=== PATIENT | female | born 1960 | race Caucasian/White ===

== ENCOUNTER 2024-10-15 11:23 | Outpatient (CLI) | payer MEDICARE, OTHER, SELFPAY ==
--- NOTE | ~2024-10-15 | XR_ITS ---
Right Humerus Technique: AP and lateral views were obtained. Clinical History: Pain Findings: No fracture or dislocation is seen. Osseous alignment is anatomic. Visualized joint spaces are grossly preserved. Soft tissues are unremarkable. Impression: Unremarkable examination. No fracture or dislocation. Reviewed, dictated and finalized at location . Impression: Unremarkable examination. No fracture or dislocation.
--- NOTE | ~2024-10-15 | XR_ITS ---
Right Shoulder Technique: AP and axillary views were obtained. Clinical History: Pain Findings: No fracture or dislocation is seen. Osseous alignment is anatomic. The glenohumeral and acr omioclavicular joint spaces are preserved. Soft tissues are unremarkable. Impression: Unremarkable right shoulder radiographs. Reviewed, dictated and finalized at [facility]. Impression: Unremarkable right shoulder radiographs.
== END 2024-10-15 11:24 | disposition home or self-care (01) ==
PROVIDERS: PCP Internal Medicine; Visit Provider Internal Medicine
DX: M25.511 Pain in right shoulder (principal); M79.621 Pain in right upper arm; I10 Essential (primary) hypertension; E11.9 Type 2 diabetes mellitus without complications
CPT/HCPCS: 73030; 73060

== ENCOUNTER 2025-02-05 01:15 | Day surgery (SDC) | payer OTHER, MEDICARE, SELFPAY ==
[2025-01-28 10:16] VITALS: BMI 29.2
--- NOTE | 2025-01-28 10:34 | PC.NURSE ---
Spoke with patient regarding medication Plavix. Patient verbalizes understanding that the last dose is to be taken on 01/28/25 and the Endoscopist will instruct them when to restart after the procedure.
[2025-02-05 07:56] VITALS: BP 121/47; PULSE 81; RESP 18; TEMP 36.3; O2SAT 100
[2025-02-05] MEDS: LACTATED RINGERS 1,000 ML 150 ML IV CONT (08:07)
--- NOTE | 2025-02-05 08:22 | WPDANESEPPF ---
Anes - Initial Pre Proc Eval Procedure: Operation Date: 02/05/25 09:00 Proposed Procedures p Screening Colonoscopy - Max Gonzalez MD Date/Time: 02/05/25 08:22 Surgeon: Max Gonzalez MD Pre Op Diagnosis: Personal history of colon polyps, unspecified Patient Data Age: 64 Gender: F Height: 1.57 m Weight: 72.3 kg Last Vital Signs Temp 97.3 F L 02/05/25 07:56 Pulse 81 02/05/25 07:56 Resp 18 02/05/25 07:56 BP 121/47 L 02/05/25 07:56 Pulse Ox 100 02/05/25 07:56 O2 Del Method Room Air 02/05/25 07:56 Allergies Allergy/AdvReac Type Severity Reaction Status Date / Time codeine Allergy Severe Difficulty Verified 02/05/25 07:50 Breathing amoxicillin Allergy Mild Hives Verified 02/05/25 07:50 Penicillins Allergy Mild Hives Verified 02/05/25 07:50 tetanus immune globulin Allergy Mild Swelling Verified 02/05/25 07:50 Home Medications ?Medication ?Instructions ?Recorded ?Confirmed ?Type atorvastatin 80 mg tablet 80 mg PO DAILY 10/10/23 01/28/25 History citalopram 20 mg tablet 20 mg PO DAILY 10/10/23 01/28/25 History clopidogrel 75 mg tablet 75 mg PO DAILY 10/10/23 02/05/25 History glimepiride 4 mg tablet 4 mg PO BID 10/10/23 01/28/25 History lisinopril 20 mg tablet 20 mg PO DAILY 10/10/23 01/28/25 History metformin 500 mg tablet 500 mg PO BID 10/10/23 01/28/25 History metoprolol succinate 25 mg 25 mg PO DAILY 10/10/23 01/28/25 History tablet,extended release 24 hr aspirin 81 mg tablet 81 mg PO DAILY 01/28/25 01/28/25 History brimonidine 0.2 % eye drops 1 drp EACH EYE BID 01/28/25 01/28/25 History doxycycline hyclate 100 mg capsule 100 mg PO BID 01/28/25 01/28/25 History prednisolone acetate 1 % eye 1 drp EACH EYE TID 01/28/25 01/28/25 History drops,suspension timolol maleate 0.5 % eye drops 1 drp EACH EYE BID 01/28/25 01/28/25 History Laboratory Tests 02/05/25 08:03 POC Capillary Glucose 211 H mg/dl (65-105) Patient hx anesthesia problems: none Family hx anesthesia problems: none Results Review: All pre-operative results and documents have been reviewed as part of the pre-operative evaluation. [facility] Past Medical History Medical History Anxiety Depression Diabetes Hyperlipidemia Hypertension Surgical History Surgical History H/O right heart catheterization H/O tubal ligation History of lumpectomy History of removal of skin mole History of delivery x 2 History of cholecystectomy Family History Family History Mother Diabetes mellitus Hypertension Heart disease Uterine cancer Father Hypertension Heart disease Sibling Heart disease Acute myocardial infarction Other Breast cancer niece and a cousin Social History Social History Smoking status: Current every day smoker Tobacco type: cigarettes Alcohol intake: never Substance use: never Do You Feel Safe in your Home?: Yes Lack of Transportation: No Lack of Food: Never True Current Housing: I Have Housing Concerned About Future Housing: No Difficulty Paying Gas/Electric Bills: No Difficulty Paying for Meds: No Currently Unemployed: No Education: High School Diploma/GED Difficulty w/ Childcare or Family Care: No Living arrangements: with family Occupation/Education: retired Gender identity (if verbalized by the patient): Female Anes - Eval Final PreProcedure Day of Procedure 02/05/25 08:22 Patient weight: overweight Lungs: normal air movement Airway: Mallampati scale class II and special considerations (Edentulous, two teeth on lower aspect. ) Neurological: alert and oriented Last oral intake: >/= 8 hours ASA classification: IV Emergent: no Anesthetic plan: proceed Anesthesia type and monitoring: general GIVS and standard monitoring Results Review: All pre-operative results and documents have been reviewed as part of the pre-operative evaluation. YOAN on CPAP, pt smokes 1.5 ppd for many years, smoked this am prior to procedural sedation, DM fsbs 211, s/p PTCA x 1 approx 2020, no interval cp, chr dyspnea. Pt w reported poor results from prep. Dr Gonzalez would like to proceed. Pt has held her plavix for this procedure. Informed Consent: The patient's anesthetic plan and its attendant risks and benefits were discussed with the patient/family/POA. Questions were solicited and answers provided to the satisfaction of the patient/family/POA.
--- NOTE | 2025-02-05 08:25 | PM.IMHP ---
H&P: HPI History of Present Illness Date/Time: 02/05/25 08:25 Chief Complaint: History of colon polyps Narrative: The patient has a history of colonic polyps, the last colonoscopy was 5 years ago. Review of Systems Review of Systems: All systems reviewed & are unremarkable except as noted in HPI and below PMFSH Past Medical History Medical History Anxiety Depression Diabetes Hyperlipidemia Hypertension Surgical History Surgical History H/O right heart catheterization H/O tubal ligation History of lumpectomy History of removal of skin mole History of delivery x 2 History of cholecystectomy Family History Family History Mother Diabetes mellitus Hypertension Heart disease Uterine cancer Father Hypertension Heart disease Sibling Heart disease Acute myocardial infarction Other Breast cancer niece and a cousin Social History Social History Smoking status: Current every day smoker Tobacco type: cigarettes Alcohol intake: never Substance use: never Do You Feel Safe in your Home?: Yes Lack of Transportation: No Lack of Food: Never True Current Housing: I Have Housing Concerned About Future Housing: No Difficulty Paying Gas/Electric Bills: No Difficulty Paying for Meds: No Currently Unemployed: No Education: High School Diploma/GED Difficulty w/ Childcare or Family Care: No Living arrangements: with family Occupation/Education: retired Gender identity (if verbalized by the patient): Female Meds Home Medications and Allergies Home Medications ?Medication ?Instructions ?Recorded ?Confirmed ?Type atorvastatin 80 mg tablet 80 mg PO DAILY 10/10/23 01/28/25 History citalopram 20 mg tablet 20 mg PO DAILY 10/10/23 01/28/25 History clopidogrel 75 mg tablet 75 mg PO DAILY 10/10/23 02/05/25 History glimepiride 4 mg tablet 4 mg PO BID 10/10/23 01/28/25 History lisinopril 20 mg tablet 20 mg PO DAILY 10/10/23 01/28/25 History metformin 500 mg tablet 500 mg PO BID 10/10/23 01/28/25 History metoprolol succinate 25 mg 25 mg PO DAILY 10/10/23 01/28/25 History tablet,extended release 24 hr aspirin 81 mg tablet 81 mg PO DAILY 01/28/25 01/28/25 History brimonidine 0.2 % eye drops 1 drp EACH EYE BID 01/28/25 01/28/25 History doxycycline hyclate 100 mg capsule 100 mg PO BID 01/28/25 01/28/25 History prednisolone acetate 1 % eye 1 drp EACH EYE TID 01/28/25 01/28/25 History drops,suspension timolol maleate 0.5 % eye drops 1 drp EACH EYE BID 01/28/25 01/28/25 History Allergies Allergy/AdvReac Type Severity Reaction Status Date / Time codeine Allergy Severe Difficulty Verified 02/05/25 07:50 Breathing amoxicillin Allergy Mild Hives Verified 02/05/25 07:50 Penicillins Allergy Mild Hives Verified 02/05/25 07:50 tetanus immune globulin Allergy Mild Swelling Verified 02/05/25 07:50 Vital Signs Vital Signs - 24 hr 02/05/25 07:56 Temperature 97.3 F L Pulse Rate 81 Respiratory Rate 18 Blood Pressure 121/47 L Pulse Oximetry 100 Oxygen Delivery Room Air Exam Const: General: cooperative and healthy appearing Resp: Effort & Inspection: normal respiratory effort and able to speak in complete sentences Auscultation: clear to auscultation bilaterally Cardio: Rate: regular rate Rhythm: regular rhythm GI: Inspection: normal to inspection GI Palp: No No hepatosplenomegaly present Auscultation: normal bowel sounds Rectal Exam: deferred Skin: General skin exam: normal color Psych: Appearance: grossly normal Mental Status: mental status grossly normal Assessment and Plan Assessment and plan (1) History of colonic polyps: Code(s): Z86.0100 - Personal history of colon polyps, unspecified Status: Acute Assessment and Plan: The patient is deemed a good candidate for the procedure. Consent signed. Will proceed.
--- NOTE | 2025-02-05 08:54 | P.HP_ITS ---
H&P: HPI History of Present Illness Date/Time: 02/05/25 08:54 Chief Complaint: History of colon polyps Narrative: The patient has a history of colonic polyps, the last colonoscopy was 5 years ago. Review of Systems Review of Systems: All systems reviewed & are unremarkable except as noted in HPI and below PMFSH Past Medical History Medical History Anxiety Depression Diabetes Hyperlipidemia Hypertension Surgical History Surgical History H/O right heart catheterization H/O tubal ligation History of lumpectomy History of removal of skin mole History of delivery x 2 History of cholecystectomy Family History Family History Mother Diabetes mellitus Hypertension Heart disease Uterine cancer Father Hypertension Heart disease Sibling Heart disease Acute myocardial infarction Other Breast cancer niece and a cousin Social History Social History Smoking status: Current every day smoker Tobacco type: cigarettes Alcohol intake: never Substance use: never Do You Feel Safe in your Home?: Yes Lack of Transportation: No Lack of Food: Never True Current Housing: I Have Housing Concerned About Future Housing: No Difficulty Paying Gas/Electric Bills: No Difficulty Paying for Meds: No Currently Unemployed: No Education: High School Diploma/GED Difficulty w/ Childcare or Family Care: No Living arrangements: with family Occupation/Education: retired Gender identity (if verbalized by the patient): Female Meds Home Medications and Allergies Home Medications ?Medication ?Instructions ?Recorded ?Confirmed ?Type atorvastatin 80 mg tablet 80 mg PO DAILY 10/10/2301/03 History citalopram 20 mg tablet 20 mg PO DAILY 10/10/2301/03 History clopidogrel 75 mg tablet 75 mg PO DAILY 10/10/2307/27 History glimepiride 4 mg tablet 4 mg PO BID 10/10/23 5 History lisinopril 20 mg tablet 20 mg PO DAILY 10/10/2301/03 History metformin 500 mg tablet 500 mg PO BID 10/10/2301/28 History metoprolol succinate 25 mg 25 mg PO DAILY 10/10/23 History tablet,extended release 24 hr aspirin 81 mg tablet 81 mg PO DAILY 01/28/2501/03 History brimonidine 0.2 % eye drops 1 drp EACH EYE BID 5 01/28/25 History doxycycline hyclate 100 mg capsule 100 mg PO BID 01/2801/28/25 History prednisolone acetate 1 % eye 1 drp EACH EYE TID 01/28/25 History drops,suspension timolol maleate 0.5 % eye drops 1 drp EACH EYE BID 01/28/25 History Allergies Allergy/AdvReac Type Severity Reaction Status Date / Time codeine Allergy Severe Difficulty Verified 02/05/25 07:50 Breathing amoxicillin Allergy Mild Hives Verified 02/05/25 07:50 Penicillins Allergy Mild Hives Verified 02/05/25 07:50 tetanus immune globulin Allergy Mild Swelling Verified 02/05/25 07:50 Vital Signs Vital Signs - 24 hr 02/05/25 07:56 Temperature 97.3 F L Pulse Rate 81 Respiratory Rate 18 Blood Pressure 121/47 L Pulse Oximetry 100 Oxygen Delivery Room Air Exam Const: General: cooperative and healthy appearing Resp: Effort & Inspection: normal respiratory effort and able to speak in complete sentences Auscultation: clear to auscultation bilaterally Cardio: Rate: regular rate Rhythm: regular rhythm GI: Inspection: normal to inspection GI Palp: No No hepatosplenomegaly present Auscultation: normal bowel sounds Rectal Exam: deferred Skin: General skin exam: normal color Psych: Appearance: grossly normal Mental Status: mental status grossly normal Assessment and Plan Assessment and plan (1) History of colonic polyps: Code(s): Z86.0100 - Personal history of colon polyps, unspecified Status: Acute
--- NOTE | 2025-02-05 09:06 | SUR.OPER ---
notified that patient's blood glucose is 211 in pre-op. okay to proceed with procedure
[2025-02-05 09:25] VITALS: BP 122/45; PULSE 79; RESP 20; O2SAT 100
[2025-02-05 09:35] VITALS: BP 128/62; PULSE 69; RESP 20; O2SAT 100
[2025-02-05 09:45] VITALS: BP 144/68; PULSE 70; RESP 17; O2SAT 100
== END 2025-02-05 09:55 | disposition home or self-care (01) ==
PROVIDERS: PCP Internal Medicine; Referring Provider Internal Medicine; Visit Provider Internal Medicine Gastroenterology
PROC: 0DJD8ZZ Inspection of Lower Intestinal Tract, Via Natural or Artificial Opening Endoscopic (ICD-10-PCS; CPT 45378; principal; 2025-02-05 09:00)
DX: Z12.11 Encounter for screening for malignant neoplasm of colon (principal); K64.8 Other hemorrhoids; E78.5 Hyperlipidemia, unspecified; I10 Essential (primary) hypertension; E11.9 Type 2 diabetes mellitus without complications; F32.A Depression, unspecified; F41.9 Anxiety disorder, unspecified; G47.33 Obstructive sleep apnea (adult) (pediatric); F17.210 Nicotine dependence, cigarettes, uncomplicated; Z99.89 Dependence on other enabling machines and devices; Z98.890 Other specified postprocedural states; Z98.61 Coronary angioplasty status; Z79.51 Long term (current) use of inhaled steroids; Z79.02 Long term (current) use of antithrombotics/antiplatelets; Z79.84 Long term (current) use of oral hypoglycemic drugs; Z79.82 Long term (current) use of aspirin; Z79.52 Long term (current) use of systemic steroids; Z90.49 Acquired absence of other specified parts of digestive tract; Z86.0100 Personal history of colon polyps, unspecified; Z80.49 Family history of malignant neoplasm of other genital organs; Z80.3 Family history of malignant neoplasm of breast; Z82.49 Family history of ischemic heart disease and other diseases of the circulatory system
CPT/HCPCS: 45378; 82948; J2003; J2704; J7120

== ENCOUNTER 2025-03-27 11:09 | Outpatient (CLI) | payer MEDICARE, SELFPAY ==
--- OUTSIDE RECORDS SUMMARY | 2025-03-27 11:15 | XMS_ITS | Clinical Summary ---
Author Organization [facility] Address [facility] [place] [address] Care Team Providers Care Community Relations Officer Name Role Phone Unavailable Primary Care Provider Unavailabl e Social History Tobacco Use Types Packs/Day Years Used Date Smoking Tobacco: Never Assessed Comments Unknown Sex and Gender Information Value Date Recorded Sex Assigned at Not on file Legal Sex Female 7:19 PM CDT Gender Identity Not on file Sexual Orientation Not on file Plan of Treatment Health Maintenance Due Date Last Done Comments Colorectal Cancer Screening Colonoscopy (10 Years) 1959 Hepatitis C 1977 DTaP, Tdap and Td Vaccines ( 1 - Tdap) 1978 Mammogram Screening 1999 Pneumococcal Vaccine: 50+ Ye ars (1 of 1 - PCV) 2009 Zoster Vaccines (1 of 2) 2009 Dexa Scan (General) 2024 COVID-19 Vaccine ( - 2024-2 6 season) 2024 Influenza Adult (#1) 2025 RSV Immunization or 60+ Years (1 - 1-dose 75+ series) 2034 Hepatitis A Vaccines Aged Out No long er eligible based on patient's age to complete this topic Meningococcal B Vaccine Aged Out No l onger eligible based on patient's age to complete this topic Meningococcal Vaccine Aged Out No tanner kym eligible based on patient's age to complete this topic RSV Immunizations Under 20 Months Aged Out No longer eligible based on patient's age to complete this topic
[2025-03-27 12:19] LABS: Hematocrit 40.9 % (37.0-47.0); Hemoglobin 14.0 g/dL (12.0-15.0); Immature Granulocyte Percent A 0.3 % (0-0.5); Lymphocytes Absolute Auto 1.73 K/mm3 (0.9-3.2); Mean Corpuscular HGB Conc 34.2 g/dl (32-36); Mean Corpuscular Hemoglobin 30.9 pg (26-34); Mean Corpuscular Volume 90.3 fl (80-100); Nucleated Red Blood Cells Absolute Auto 0.000 K/mm3 (0.0-0.012); Nucleated Red Blood Cells Perc 0.0 % (0.0-0.2); Platelet Count Result 196 k/mm3 (150-375); Red Blood Count 4.53 M/mm3 (4.2-5.4); White Blood Count 7.3 K/mm3 (4.5-10.0)
[2025-03-27 12:30] LABS: Hemoglobin A1C 10.6 % (<5.7)
[2025-03-27 12:38] LABS: MALB Creatinine Ratio 11.1 mg/g (0-30)
[2025-03-27 12:48] LABS: Alanine Aminotransferase 33 U/L (6-35); Albumin Level 4.1 g/dL (3.5-5.1); Alkaline Phosphatase 127 U/L (38-126); Anion Gap 6 mmol/L (4-12); Aspartate Amino Transferase 40 U/L (14-36); Bilirubin,Total 1.5 mg/dL (0.2-1.3); Blood Urea Nitrogen 13 mg/dL (7-17); Calcium 9.7 mg/dL (8.4-10.2); Carbon Dioxide 30 mmol/L (22-30); Chloride 98 mmol/L (98-107); Cholesterol 169 mg/dL (0-200); Estimated Glomerular Filt Rate > 60; Glucose 235 mg/dL (65-110); HDL Direct 46 mg/dL; Potassium 3.9 mmol/L (3.4-5.0); Sodium 134 mmol/L (137-145); Total Protein 7.4 g/dL (6.3-8.2); Triglycerides 138 mg/dL (<150)
[2025-03-27 12:57] LABS: Free T4 Free Thyroxine 0.99 ng/dL (0.78-2.19)
[2025-03-27 13:24] LABS: Thyroid Stimulating Hormone 0.617 uIU/mL (0.465-4.680)
[2025-03-27 13:42] LABS: Vitamin B12 400.0 pg/mL (239-931)
== END 2025-03-27 11:10 | disposition home or self-care (01) ==
PROVIDERS: PCP Internal Medicine; Visit Provider Internal Medicine
DX: R27.0 Ataxia, unspecified (principal); E78.00 Pure hypercholesterolemia, unspecified; E11.9 Type 2 diabetes mellitus without complications; I10 Essential (primary) hypertension
CPT/HCPCS: 36415; 80053; 80061; 82043; 82607; 83036; 84439; 84443; 85025

== ENCOUNTER 2025-04-02 11:56 | Outpatient (CLI) | payer MEDICARE, SELFPAY ==
--- NOTE | ~2025-04-02 | CT_ITS ---
EXAMINATION: CT brain wo con DATE: 04/02/2025 12:11 INDICATION: Transient cerebral ischemic attack, unspecified. TECHNIQUE: Computed tomography (CT) of the head was performed without intravenous contrast. The mA was adjusted according to patient size. Iterative reconstruction technique was employed. The dose-length product was 599.57 mGy-cm. COMPARISON: None FINDINGS: There are scattered areas of low attenuation in the cerebral white matter, which is within normal limits for the patient's age. There is no intracranial hemorrhage, acute infarction, or abnormal intracranial mass lesion. The ventricles are normal in size. The paranasal sinuses are clear. The mastoid air cells are normal. There are likely changes of ocular lens replacement surgeries. IMPRESSION: 1. Normal aging brain. Reviewed, dictated and finalized at location E. NCT HISTORY INSTRUCTOR IMPRESSION: 1. Normal aging brain.
== END 2025-04-02 11:57 | disposition home or self-care (01) ==
PROVIDERS: PCP Internal Medicine; Visit Provider Internal Medicine
DX: G45.9 Transient cerebral ischemic attack, unspecified (principal)
CPT/HCPCS: 70450